=== PATIENT | male | born 1960 | race Caucasian/White ===

== ENCOUNTER 2024-04-26 07:39 | Outpatient (CLI) | payer BC ==
[2024-04-26] VITALS (7 sets, daily range): BP systolic 132–151; BP diastolic 59–82; PULSE 50–68; RESP 12–20; O2SAT 96–99
[~2024-04-26] VITALS: Ht 177.8 cm; Wt 118.0 kg
[2024-04-26] MEDS: regadenoson 0.4mg/5ml syringe IV ONE (09:41)
[2024-04-26] MEDS: aminophylline 500mg/20ml vial IV ONE (09:52)
== END 2024-04-26 23:59 | disposition home or self-care (01) ==
LOC: CARD DIAG 07:39
PROVIDERS: ATTEND Internal Medicine Cardiovascular Disease
DX: I08.3 Combined rheumatic disorders of mitral, aortic and tricuspid valves (principal); I48.0 Paroxysmal atrial fibrillation; R07.9 Chest pain, unspecified; I10 Essential (primary) hypertension
CPT/HCPCS: 78452; 93017; 93306; A9500; J2785

== ENCOUNTER 2024-05-11 09:18 | Day surgery (SDC) | payer BC ==
[~2024-05-11] VITALS: Ht 177.8 cm; Wt 118.0 kg
[~2024-05-11 09:18] MED LIST: DILT240C95 PO; NEOM10DR45 OT; RIVA20TA PO; ROSU10TA72 PO; VALS80TA32 PO
[2024-05-11 10:04] VITALS: BP 140/50; PULSE 57; RESP 14; TEMP 96.5
[2024-05-11] MEDS ORDERED: fentaNYL/PF 50MCG/1 ML 2ML syringe ONE (10:54)
[2024-05-11] MEDS ORDERED: LIDOcaine 2% Viscous 15ml cup ONE (10:55)
[2024-05-11] MEDS ORDERED: MIDAZolam 1 MG/ML 5ML VIAL ONE (10:55)
[2024-05-11 11:23] VITALS: BP 131/65; PULSE 65; RESP 11; O2SAT 96
[2024-05-11 11:31] VITALS: BP 141/57; PULSE 66; RESP 15; O2SAT 94
[2024-05-11 11:41] VITALS: BP 135/62; PULSE 61; RESP 15; O2SAT 94
[2024-05-11 11:51] VITALS: BP 143/76; PULSE 63; RESP 11; O2SAT 95
[2024-05-11 12:01] VITALS: BP 129/71; PULSE 62; RESP 17; O2SAT 95
== END 2024-05-11 12:05 | disposition home or self-care (01) ==
LOC: GI LAB 09:18
PROVIDERS: ATTEND Internal Medicine Gastroenterology
DX: K22.70 Barrett's esophagus without dysplasia (principal); K21.00 Gastro-esophageal reflux disease with esophagitis, without bleeding; K29.50 Unspecified chronic gastritis without bleeding
CPT/HCPCS: 43239; 99152; J2250; J3010; J7030; Z7512; A4620

== ENCOUNTER 2024-12-26 11:19 | Emergency (ER) | payer BC ==
[~2024-12-26] VITALS: Ht 175.3 cm; Wt 124.5 kg
[2024-12-26 12:36] LABS: BASOPHILS % (AUTO) 0.6 % (0-1); EOSINOPHILS # (AUTO) 0.2 X10'3 (0-0.9); EOSINOPHILS % (AUTO) 3.8 % (0-6); HEMATOCRIT 42.3 % (42.0-52.0); HEMOGLOBIN 14.1 g/dl (14.0-17.9); LYMPHOCYTES # (AUTO) 1.2 X10'3 (1.1-4.8); MEAN CORPUSCULAR HEMOGLOBIN 28.9 PG (27.0-31.0); MEAN CORPUSCULAR HGB CONC 33.2 g/dL (33.0-36.5); MEAN PLATELET VOLUME 7.6 FL (7.4-10.4); MONOCYTES # (AUTO) 0.5 X10'3 (0-0.9); MONOCYTES % (AUTO) 8.3 % (2-12); NEUTROPHILS # (AUTO) 3.8 X10'3 (1.8-7.7); NEUTROPHILS % (AUTO) 66.3 % (42-75); PLATELET COUNT 255 X10'3 (140-440); RED BLOOD COUNT 4.87 X10'6 (4.70-6.10); RED CELL DISTRIBUTION WIDTH 13.7 % (11.5-14.5); WHITE BLOOD COUNT 5.8 X10'3 (4.5-11.0)
[2024-12-26] MEDS: predniSONE 20 mg tablet PO ONE (12:47)
[2024-12-26] MEDS: ipratropium/albuterol 3ml nebule NEB STA (12:56)
[2024-12-26 13:06] LABS: ALBUMIN 3.4 G/DL (3.4-5.0); ANION GAP 8 (8-16); BLOOD UREA NITROGEN 15 MG/DL (7-18); BUN/CREATININE RATIO 15.8 (10.0-20.0); CALCIUM 8.6 MG/DL (8.5-10.1); CHLORIDE 104 MMOL/L (99-107); CREATININE 0.95 MG/DL (0.60-1.10); GLUCOSE 131 MG/DL (70-104); POTASSIUM 4.2 MMOL/L (3.5-5.1); PRO BRAIN NATRIURETIC PEPTIDE 157 PG/ML (0-125); SODIUM 140 MMOL/L (135-145); TOTAL CARBON DIOXIDE 28.1 MMOL/L (24-32); eCRCL 76 ML/MIN; eGFR 79 ML/MIN
[2024-12-26 13:08] VITALS: PULSE 74; RESP 18; O2SAT 92
[2024-12-26] MEDS ORDERED: PRED20TA PO (13:31)
[2024-12-26] MEDS ORDERED: ALB0.5UD NEB (13:32)
[2024-12-26] MEDS ORDERED: INHA1EAC52 INH (13:33)
[2024-12-26 14:07] VITALS: BP 150/70; PULSE 62; RESP 16; TEMP 97.8; O2SAT 97
== END 2024-12-26 14:11 | disposition home or self-care (01) ==
LOC: ER 11:19
DX: J40 Bronchitis, not specified as acute or chronic (principal); I48.91 Unspecified atrial fibrillation
CPT/HCPCS: 36415; 71046; 80048; 83880; 85025; 93005; 94640; 99285; J7512; 94760

== ENCOUNTER → 2025-01-05 | Emergency (ER) | payer BC ==
[~2025-01-05] VITALS: Ht 177.8 cm; Wt 124.5 kg
[~2025-01-05] MED LIST changes: +ALB0.5UD NEB; +INHA1EAC52 INH
[2025-01-05 13:09] VITALS: BP 174/79; PULSE 65; RESP 18; O2SAT 97
[2025-01-05 13:52] VITALS: TEMP 98
== END | disposition home or self-care (01) ==
LOC: ER 13:03
DX: Z00.8 Encounter for other general examination (principal)
CPT/HCPCS: 99281